=== PATIENT | female | born 1945 | race Caucasian/White ===

== ENCOUNTER 2020-06-04 12:09 | Outpatient (CLI) | payer MEDICARE, SELFPAY ==
[2020-06-04 13:16] LABS: Troponin I < 0.012 ng/mL (0.000-0.034)
== END 2020-06-04 12:10 | disposition home or self-care (01) ==
PROVIDERS: PCP Internal Medicine; Visit Provider Nurse Practitioner Adult Health
DX: R07.89 Other chest pain (principal)
CPT/HCPCS: 36415; 84484